=== PATIENT | male | born 1970 | race Caucasian/White ===

== ENCOUNTER 2023-11-11 07:00 | Day surgery (SDC) | payer MEDICARE, MEDICAID ==
[2023-11-11] VITALS (12 sets, daily range): BP systolic 109–143; BP diastolic 75–93; PULSE 87–95; RESP 11–18; TEMP 98; O2SAT 92–98
[~2023-11-11] VITALS: Ht 188 cm; Wt 123.3 kg
[~2023-11-11 07:00] MED LIST: AMLO10TA PO; DEXL60CA3 PO; LISI20TA28 PO; NITR0.4T48 SL; TRAZ-251 PO
[2023-11-11] MEDS ORDERED: FENO134C21 PO (07:44)
[2023-11-11] MEDS ORDERED: TRIP1TAB14 PO (07:44)
[2023-11-11] MEDS ORDERED: DOCU-395 PO (07:44)
[2023-11-11] MEDS ORDERED: ATOR40TA72 PO (07:44)
[2023-11-11] MEDS ORDERED: TRAZ-256 PO (07:44)
[2023-11-11] MEDS ORDERED: BUDE10.2 INH (07:45)
[2023-11-11] MEDS ORDERED: ALBU18HF2 INH (07:45)
[2023-11-11] MEDS ORDERED: VARE1TAB24 PO (07:48)
[2023-11-11] MEDS ORDERED: FAMO20TA8 PO (07:48)
[2023-11-11] MEDS: glycopyrrolate 0.2mg/ml inj IV ONE (08:10)
[2023-11-11 08:15] LABS: ALBUMIN 3.6 G/DL (3.4-5.0); ANION GAP 7 (8-16); BASOPHILS # (AUTO) 0.1 X10'3 (0-0.2); BASOPHILS % (AUTO) 0.9 % (0-1); BLOOD UREA NITROGEN 13 MG/DL (7-18); BUN/CREATININE RATIO 9.6 (10.0-20.0); CALCIUM 8.9 MG/DL (8.5-10.1); CHLORIDE 102 MMOL/L (99-107); CREATININE 1.36 MG/DL (0.60-1.10); EOSINOPHILS # (AUTO) 0.3 X10'3 (0-0.9); EOSINOPHILS % (AUTO) 2.9 % (0-6); GLUCOSE 124 MG/DL (70-104); HEMATOCRIT 47.5 % (42.0-52.0); LYMPHOCYTES # (AUTO) 2.8 X10'3 (1.1-4.8); LYMPHOCYTES % (AUTO) 29.5 % (21-51); MAGNESIUM 1.8 MG/DL (1.5-2.4); MEAN CORPUSCULAR HEMOGLOBIN 30.4 PG (27.0-31.0); MEAN CORPUSCULAR HGB CONC 33.7 g/dL (33.0-36.5); MEAN CORPUSCULAR VOLUME 90.2 FL (78-98); MEAN PLATELET VOLUME 7.6 FL (7.4-10.4); MONOCYTES # (AUTO) 1.1 X10'3 (0-0.9); MONOCYTES % (AUTO) 11.7 % (2-12); NEUTROPHILS # (AUTO) 5.3 X10'3 (1.8-7.7); PLATELET COUNT 258 X10'3 (140-440); POTASSIUM 4.3 MMOL/L (3.5-5.1); RED BLOOD COUNT 5.26 X10'6 (4.70-6.10); RED CELL DISTRIBUTION WIDTH 13.5 % (11.5-14.5); SODIUM 138 MMOL/L (135-145); TOTAL CARBON DIOXIDE 29.1 MMOL/L (24-32); WHITE BLOOD COUNT 9.6 X10'3 (4.5-11.0); eCRCL 73 ML/MIN; eGFR 55 ML/MIN
[2023-11-11 08:16] LABS: PROTHROMBIN TIME 10.5 SECONDS (9.0-12.0)
[2023-11-11] MEDS: MIDAZolam 1mg/ml 10ml vial IV ONE (09:15)
[2023-11-11] MEDS: fentaNYL/PF 50MCG/1 ML 2ML syringe IV ONE (09:15)
== END 2023-11-11 10:25 | disposition home or self-care (01) ==
LOC: SSTAY O 07:00
PROVIDERS: ATTEND Internal Medicine Cardiovascular Disease
DX: D15.1 Benign neoplasm of heart (principal); I10 Essential (primary) hypertension; E78.5 Hyperlipidemia, unspecified; E66.9 Obesity, unspecified; J44.9 Chronic obstructive pulmonary disease, unspecified; G47.30 Sleep apnea, unspecified; Z86.73 Personal history of transient ischemic attack (TIA), and cerebral infarction without residual deficits; Z68.34 Body mass index [BMI] 34.0-34.9, adult
CPT/HCPCS: 36415; 80048; 83735; 85025; 85610; 93312; 93325; J2250; J3010; J3490; J7030; A4620

== ENCOUNTER 2023-12-30 07:29 | Day surgery (SDC) | payer MEDICARE, MEDICAID ==
[~2023-12-30] VITALS: Ht 188 cm; Wt 122.4 kg
[2023-12-30] VITALS (9 sets, daily range): BP systolic 110–150; BP diastolic 63–116; PULSE 85–95; RESP 12; TEMP 98.2; O2SAT 91–97
[~2023-12-30 07:29] MED LIST changes: +ALBU18HF2 INH; +ATOR40TA72 PO; +BUDE10.2 INH; +DOCU-395 PO; +FAMO20TA8 PO; +FENO134C21 PO; -TRAZ-251 PO; +TRAZ-256 PO; +TRIP1TAB14 PO; +VARE1TAB24 PO
[2023-12-30] MEDS ORDERED: normal saline 1,000 ML IV SCH (07:50)
[2023-12-30] MEDS ORDERED: PROM6.2527 PO (08:24)
[2023-12-30] MEDS ORDERED: SIMV-342 PO (08:24)
[2023-12-30 08:41] LABS: BASOPHILS # (AUTO) 0.2 X10'3 (0-0.2); BASOPHILS % (AUTO) 1.9 % (0-1); EOSINOPHILS # (AUTO) 0.2 X10'3 (0-0.9); EOSINOPHILS % (AUTO) 2.3 % (0-6); HEMATOCRIT 47.1 % (42.0-52.0); HEMOGLOBIN 16.3 g/dl (14.0-17.9); LYMPHOCYTES # (AUTO) 2.4 X10'3 (1.1-4.8); LYMPHOCYTES % (AUTO) 25.2 % (21-51); MEAN CORPUSCULAR HEMOGLOBIN 30.5 PG (27.0-31.0); MEAN CORPUSCULAR HGB CONC 34.5 g/dL (33.0-36.5); MEAN CORPUSCULAR VOLUME 88.4 FL (78-98); MEAN PLATELET VOLUME 7.4 FL (7.4-10.4); MONOCYTES # (AUTO) 0.8 X10'3 (0-0.9); MONOCYTES % (AUTO) 8.6 % (2-12); PLATELET COUNT 284 X10'3 (140-440); RED BLOOD COUNT 5.33 X10'6 (4.70-6.10); RED CELL DISTRIBUTION WIDTH 13.7 % (11.5-14.5); WHITE BLOOD COUNT 9.7 X10'3 (4.5-11.0)
[2023-12-30 08:57] LABS: ALBUMIN 3.7 G/DL (3.4-5.0); ANION GAP 11 (8-16); BLOOD UREA NITROGEN 15 MG/DL (7-18); BUN/CREATININE RATIO 11.1 (10.0-20.0); CALCIUM 9.1 MG/DL (8.5-10.1); CHLORIDE 99 MMOL/L (99-107); CREATININE 1.35 MG/DL (0.60-1.10); GLUCOSE 137 MG/DL (70-104); POTASSIUM 4.4 MMOL/L (3.5-5.1); SODIUM 137 MMOL/L (135-145); TOTAL CARBON DIOXIDE 26.7 MMOL/L (24-32); eCRCL 74 ML/MIN; eGFR 55 ML/MIN
[2023-12-30 09:04] LABS: PROTHROMBIN TIME 9.8 SECONDS (9.0-12.0)
[2023-12-30 09:06] LABS: INR 0.9 INR
[2023-12-30] MEDS: diphenhydrAMINE 25mg capsule PO PRN (09:09)
[2023-12-30] MEDS: sodium bicarbonate 1meq/ml syr 150 ML in dextrose 5%-water 1,000 ML IV ONE (09:15)
[2023-12-30] MEDS ORDERED: heparin 1,000unit/ml 10ml vial 10 ML ONE (10:33)
[2023-12-30] MEDS ORDERED: iohexol 350 MG/ML 50ML vial IV ONE (10:33)
[2023-12-30] MEDS ORDERED: iohexol 350MG/ML 100ml bottle IV ONE (10:33)
[2023-12-30] MEDS ORDERED: verapamil 2.5 mg/ml inj IV ONE (10:33)
[2023-12-30] MEDS ORDERED: LIDOcaine 1% (10mg/ml) 2ml vial ONE ×2 (10:33→10:50)
[2023-12-30] MEDS ORDERED: nitroGLYCERIN 500mcg/5mL D5W 5 ML IV ONE (10:34)
[2023-12-30] MEDS ORDERED: midazolam 1 mg/ML 2ml injection ONE ×2 (10:51→10:58)
[2023-12-30] MEDS ORDERED: fentaNYL/PF 50MCG/1 ML 2ML syringe ONE (10:51)
[2023-12-30] MEDS ORDERED: HYDROcodone/acetaminophen 10/325mg tab PO PRN (12:05)
[2023-12-30] MEDS ORDERED: proCHLORperazine 10 MG/2 ml inj IV PRN (12:05)
[2023-12-30] MEDS ORDERED: HYDROcodone/acetaminophen 5mg/325mg tablet PO PRN (12:05)
[2023-12-30] MEDS ORDERED: ondansetron/PF 4mg/2ml inj IV PRN (12:05)
== END 2023-12-30 15:00 | disposition home or self-care (01) ==
LOC: SSTAY O 07:29
PROVIDERS: ATTEND Internal Medicine Cardiovascular Disease
DX: I11.9 Hypertensive heart disease without heart failure (principal); E78.5 Hyperlipidemia, unspecified; J44.9 Chronic obstructive pulmonary disease, unspecified; G47.30 Sleep apnea, unspecified; E66.9 Obesity, unspecified; Z87.891 Personal history of nicotine dependence; Z68.34 Body mass index [BMI] 34.0-34.9, adult; Z82.49 Family history of ischemic heart disease and other diseases of the circulatory system
CPT/HCPCS: 36415; 80048; 83735; 85025; 85610; 93005; 93458; 99152; 99153; A6258; A6402; C1894; J1644; J2001; J2250; J3010; J3490; J7030; J7070; Q0163; Q9967; Z7610